=== PATIENT | female | born 1940 | race African-American/Black ===

== ENCOUNTER 2025-06-23 15:43 | Emergency (ER) | payer MEDICARE, MEDICAID, SELFPAY ==
[2025-06-23 15:51] VITALS: BP 103/66; PULSE 98; RESP 19; TEMP 36.7; O2SAT 95; BMI 18.2
--- NOTE | 2025-06-23 16:06 | XR_ITS ---
EXAMINATION: AP chest single view TECHNIQUE: Sitting AP portable chest single view Date and time: June 23, 2025, 1614 hours, comparison July 16, 2015 INDICATIONS: Chest pain today. FINDINGS: Mild prominence left ventricle Moderate hyperexpansion Accentuation of bronchovascular markings No lobar pneumonia. Prominent osteopenia IMPRESSION: COPD Bronchitis pattern
--- NOTE | 2025-06-23 16:06 | EKG_ITS ---
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: : 1940 Requested By: Pelon Jane Order Number: [id number] Reading MD: Pelon Jane Measurements Intervals [place] Rate: 84 P: 63 MD: 117 QRS: 82 QRSD: 114 T: -29 QT: 366 QTc: 434 Interpretive Statements SINUS RHYTHM WITH SHORT MD INTERVAL POSSIBLE LEFT ATRIAL ENLARGEMENT [-0.1mV P-WAVE IN V1/V2] INCOMPLETE RIGHT BUNDLE BRANCH BLOCK [90+ ms QRS DURATION, TERMINAL R IN V1/V2, 40+ ms S IN I/aVL/V4/V5/V6] ST DEVIATION AND MODERATE T-WAVE ABNORMALITY, CONSIDER ANTEROLATERAL ISCHEMIA [-0.1+ mV T-WAVE IN V3-V6] ST DEVIATION AND MODERATE T-WAVE ABNORMALITY, CONSIDER INFERIOR ISCHEMIA [-0.1+ mV T-WAVE IN II/aVF] No previous ECG available for comparison /store/S0/[id number].pdf
--- NOTE | 2025-06-23 16:07 | PD.EDRME ---
Rapid Medical Screening Exam PENDING SALE TO [facility] Arrival date/time: 06/23/25 15:43 84-year-old female with a history of hypertension presents to the emergency room with a chief complaint of generalized weakness and fatigue. Patient states she has lost over a third of her weight in the last month. Patient states she has a loss of appetite and worsening weakness. I have greeted and performed a focused initial assessment of this patient. A comprehensive ED assessment and evaluation of the patient, analysis of all test results, and completion of the medical decision making process will be conducted by additional ED providers. Chief Complaint: Hip Injury/Pain Time Seen by Provider: 06/23/25 15:51 Vital signs: Vital Signs Temperature 98.1 F 06/23/25 15:51 Pulse Rate 98 06/23/25 15:51 Respiratory Rate 19 06/23/25 15:51 Blood Pressure 103/66 06/23/25 15:51 Pulse Oximetry (%) 95 06/23/25 15:51 Oxygen Delivery Method Room Air 06/23/25 15:51 Vital signs reviewed by provider: Yes Exam: Strong and regular rhythm Clear bilateral lung sounds Clinical Impression: Failure to thrive/weakness/hypothyroidism
--- NOTE | 2025-06-23 17:09 | PRELIM_ITS ---
Radiographs of the chest (2 views). June 23, 2025 1613 hours Clinical history: Chest Pain Comparison: No prior study is available for comparison. Findings: The aorta is ectatic with atheromatous calcification of the aortic arch. The heart size is within normal limits. The interstitial markings are prominent. There is no pleural effusion. The bony thorax is unremarkable. Impression: No acute cardiopulmonary process. Report Electronically Signed By: Danielle Gold 06/23/2025 5:09:45 PM [EST]
[2025-06-23 17:23] LABS: Basophils # (Auto) 0.0 Thou/mm3 (0.0-0.2); Basophils % (Auto) 0 % (0-2.5); Eosinophils # (Auto) 0.0 Thou/mm3 (0.0-0.5); Eosinophils % (Auto) 0 % (0-10); Hematocrit 41.0 % (36.0-46.0); Hemoglobin 14.6 g/dL (12.0-16.0); Immature Granulocytes Auto 0.03 Thou/mm3 (0.00-0.00); Lymphocytes # (Auto) 1.5 Thou/mm3 (1.0-4.8); Lymphocytes % (Auto) 13 % (10-50); Mean Corpuscular HGB Conc 35.6 g/dl (31.0-37.0); Mean Corpuscular Hemoglobin 30.9 pg (25.0-35.0); Mean Corpuscular Volume 87 fL (80-100); Monocytes # (Auto) 1.4 Thou/mm3 (0.0-0.8); Monocytes % (Auto) 13 % (0-12); Neutrophils # (Auto) 8.0 Thou/mm3 (1.8-7.7); Neutrophils % (Auto) 73 % (37-80); Nucleated Red Blood Cell # 0.00 Thou/mm3 (0.00-0.00); Nucleated Red Blood Cell % 0 /100 WBC (0); Platelet Count 261 Thou/mm3 (140-440); RDW Standard Deviation 42.6 fL (36.4-46.3); Red Blood Count 4.72 Miln/mm3 (4.00-5.20); White Blood Count 10.9 Thou/mm3 (3.6-11.0)
[2025-06-23 17:46] LABS: INR 1.1 (0.9-1.3); Partial Thromboplastin Time 26.8 Seconds (22.0-36.0); Prothrombin Time 11.4 Seconds (9.0-12.2)
[2025-06-23 17:54] LABS: B-Type Natriuretic Peptide 51 pg/mL (0-100)
[2025-06-23 17:55] LABS: Alanine Aminotransferase 9 U/L (10-49); Albumin, Serum 4.2 gm/dL (3.4-4.8); Albumin/Globulin Ratio 0.9 (1.2-2.2); Alkaline Phosphatase 59 U/L (46-116); Anion Gap 17 (7-16); Aspartate Amino Transferase 23 U/L (0-34); BUN/Creatinine Ratio 16 Ratio (12-20); Bilirubin,Total 0.7 mg/dL (0.3-1.2); Blood Urea Nitrogen 25 mg/dL (9-23); Calcium 9.6 mg/dL (8.3-10.6); Calcium (Corrected) 9.6 mg/dL (8.5-10.1); Carbon Dioxide 31.1 mMol/L (20.0-31.0); Chloride 87 mMol/L (98-107); Creatinine (Component) 1.6 mg/dL (0.6-1.3); Estimated Creatinine Clearance 21.9 mL/min (>60); Free T4 (Free Thyroxine) 1.47 ng/dL (0.89-1.76); Globulin 4.5 gm/dL (2.3-3.5); Glucose 92 mg/dL (74-106); Magnesium 1.8 mg/dL (1.6-2.6); Osmolality,Calculated 274 (275-295); Sodium 135 mMol/L (136-145); Thyroid Stimulating Hormone 2.94 uIU/mL (0.55-4.78); Total Protein 8.7 gm/dL (5.7-8.2); Troponin I 0.045 ng/mL (0.0-0.045); eGFR 32 See Note
[2025-06-23 17:58] LABS: Potassium 2.4 mMol/L (3.4-5.1)
--- NOTE | 2025-06-23 18:22 | PD.EDHIP ---
Lower Extremity Injury RME/HPI General Chief Complaint: Hip Injury/Pain Stated Complaint: BILATERAL HIP PAIN RADIATING TO LOWER BACK Time Seen by Provider: 06/23/25 15:51 Arrival date/time: 06/23/25 15:43 RME / HPI RME / HPI Narrative: 06/23/25 15:43 84-year-old female with a history of hypertension presents to the emergency room with a chief complaint of generalized weakness and fatigue. Patient states she has lost over a third of her weight in the last month. Patient states she has a loss of appetite and worsening weakness. I have greeted and performed a focused initial assessment of this patient. A comprehensive ED assessment and evaluation of the patient, analysis of all test results, and completion of the medical decision making process will be conducted by additional ED providers. See [facility] for Dr. Worthy's HPI documentation. Related Data Home Medications ?Medication ?Instructions ?Recorded ?Confirmed alendronate 10 mg tablet 10 mg PO QAM 01/17/18 01/17/18 fluticasone 100 mcg-salmeterol 50 1 puff inhalation BID 01/17/18 01/17/18 mcg/dose blistr powdr for inhalation (Advair Diskus) hydrochlorothiazide 25 mg tablet 25 mg PO QAM 01/17/18 01/17/18 levothyroxine 112 mcg capsule 112 mcg PO QDAY 01/17/18 01/17/18 montelukast 5 mg chewable tablet 10 mg PO QPM 01/17/18 01/17/18 (Singulair) Allergies Allergy/AdvReac Type Severity Reaction Status Date / Time Penicillins Allergy Severe Anaphylaxis Verified 06/23/25 15:46 Review of Systems Review of Systems Systems Reviewed: All systems reviewed, normal except as documented Past Medical History Past Medical History NEUROLOGIC: Negative Seizures CARDIAC: Positive Cardiac Disorders and Hypertension; Negative Congestive Heart Failure RESPIRATORY: Positive Asthma; Negative Chronic Obstructive Pulmonary Disease (COPD) GASTROINTESTINAL: Negative Gastrointestinal Disorders GENITOURINARY: Negative Genitourinary Disorders or Renal Disease MUSCULOSKELETAL: Negative Musculoskeletal Disorders ENDOCRINE: Positive Endocrine Disorders and Hypothyroidism; Negative Diabetes Mellitus Type 1 or Diabetes Mellitus Type 2 OTHER HISTORY: Negative Blood Transfusions or Anesthesia Reactions Surgical History SURGICAL: Positive Hysterectomy Social History SMOKING STATUS: Former smoker ED Exam Narrative Physical exam: See [facility] for Dr. Worthy's physical exam documentation. Course Quality Measures none Orders Category Date Time Status Bedside COVID-19 Antigen Test NOW Care 06/23/25 18:[address] Screening NOW Care 06/23/25 18:28 Active EKG (ED ONLY) *Do not use* NOW Care 06/23/25 16:06 Completed Saline [Insert IV] NOW Care 06/23/25 18:25 Active Straight [In and Out Catheter] X1 Care 06/23/25 18:[address] abdomen pelvis w con Stat Exams 06/23/25 18:[address] angio chest Stat Exams 06/23/25 18:[address] head/brain wo con Stat Exams 06/23/25 18:28 Ordered EKG (ED Only) Stat Exams 06/23/25 16:06 Draft US gall bladder Stat Exams 06/23/25 18:28 Ordered US venous doppler LE BI Stat Exams 06/23/25 18:28 Ordered XR chest 2V Stat Exams 06/23/25 16:06 Completed ABG [Arterial Blood Gas] Stat Lab 06/23/25 18:30 Ordered Amylase Stat Lab 06/23/25 19:04 Results B-Type Natriuretic Peptide Stat Lab 06/23/25 16:37 Completed Beta Hydroxybutyrate Stat Lab 06/23/25 19:04 Results Bilirubin,Direct Stat Lab 06/23/25 19:04 Results Blood Culture (Lab) Stat Lab 06/23/25 19:04 Received CBC Stat Lab 06/23/25 16:37 Completed CK [Creatine Kinase] Stat Lab 06/23/25 19:04 Results CRP [C-Reactive Protein] Stat Lab 06/23/25 19:04 Results Comprehensive Metabolic Panel Stat Lab 06/23/25 16:37 Completed D-Dimer Stat Lab 06/23/25 19:04 Received ESR [Sed Rate (ESR)] Stat Lab 06/23/25 19:04 Completed Free T3 Stat Lab 06/23/25 19:04 Results Free T4 (Free Thyroxine) Stat Lab 06/23/25 16:37 Completed Influenza A & B Rapid Panel Stat Lab 06/23/25 18:25 Ordered Lactate (Lactic Acid) Stat Lab 06/23/25 19:04 Results Lipase Stat Lab 06/23/25 19:04 Results Magnesium Stat Lab 06/23/25 16:37 Completed Partial Thromboplastin Time Stat Lab 06/23/25 16:37 Completed Procalcitonin Stat Lab 06/23/25 19:04 Results Prothrombin Time with INR Stat Lab 06/23/25 16:37 Completed TSH [Thyroid Stimulating Hormone] Stat Lab 06/23/25 16:37 Completed Troponin I Stat Lab 06/23/25 16:37 Completed Urinalysis, C/S if Indicated Stat Lab 06/23/25 16:06 Ordered Azithromycin Inj [Zithromax Inj] 500 mg Med 06/23/25 18:29 Discontinued Sodium Chloride 0.9% 250 ml [Ns] 250 ml IV X1 MethylPREDNISolone.* [SoluMEDROL Inj] Med 06/23/25 18:26 Discontinued 125 mg IVP X1 ONE Morphine* Inj Med 06/23/25 18:26 Discontinued 2 mg IV X1 ONE Ondansetron Inj [Zofran Inj] Med 06/23/25 18:26 Discontinued 4 mg IVP X1 ONE POTASSIUM CHL 10 mEq IVPB [Kcl Ivpb] Med 06/23/25 18:26 Discontinued 10 meq in 100 ml IV X1 POTASSIUM CHL 10% Liq 15 ML Med 06/23/25 18:26 Discontinued 40 meq PO X1 ONE Ringers Lactated 1000 ml [Lactated Ringers] 1,000 ml Med 06/23/25 18:25 Discontinued IV 1,000 mls/hr cefTRIAXone/D5w 1gm IV premix [Rocephin/D5w 1gm IV Med 06/23/25 18:29 Discontinued premix] 1 gm in 50 ml IV X1 Vital Signs Vital signs: Vital Signs Temperature 98.1 F 06/23/25 15:51 Pulse Rate 98 06/23/25 15:51 Respiratory Rate 19 06/23/25 15:51 Blood Pressure 103/66 06/23/25 15:51 Pulse Oximetry (%) 95 06/23/25 15:51 Oxygen Delivery Method Room Air 06/23/25 15:51 Extremity Injury, Lower MDM Narrative MDM Narrative:: This section includes all my notes and documentations, including HPI, PE, and ED course. Yoni Worthy MD HPI: 84yo female here with fatigue and generalized weakness for the last few weeks. Patient has been bedbound. ROS: All negative except as documented in HPI. Physical Exam: General: Alert and oriented. No acute distress when remaining still. Eyes: Conjunctivae and lids clear. ENT: No nasal congestion. Neck: Supple. Heart: RRR. Lungs: No respiratory distress. Decreased air movement with severe rhonchi. Abdomen: Soft and nontender. Normal bowel sounds. No distension. No rebound or guarding. Back: No CVA tenderness. Skin: Warm and dry. Neuro: Alert and oriented X 3. I reviewed all diagnostic test results. My interpretation of the EKG is My interpretation of the chest x-ray is bronchitis pattern. My review of the CT report is Blood tests are remarkable for K 2.4, Cl 87, Creatinine 1.6, Lactic Acid 2.2, Beta Hydroxybutyrate 2.6. At this point, diagnoses include Treatment here included Significant improvement Not yet done: I discussed the case with our hospitalist. About the presentation and exam and diagnostics and treatments here. And need of further care in the hospital. Will accept the patient. Not yet done: Based on my best medical judgment, made decision no further evaluation or treatment indicated at this time. Patient understands and agrees to the discharge instructions customized and printed, see below. Yoni Worthy MD Patient data External records reviewed:: [facility] previous records (Per chart review, patient has no previous ED visits or admissions to this facility.) Clinical information provided by:: patient Social determinants that could affect healthcare access:: none Patient has the following chronic illnesses:: HTN, hypothyroidism How is presenting disease/condition affected by chronic disease/condition?: uneffected by Evaluation data The following diagnostics were reviewed and interpreted by me:: lab results, radiology exam(s) and EKG tracing(s) Lab and/or radiology exams considered but not ordered:: none Medications / Prescriptions Medications or Prescriptions considered but not ordered:: none Medication administrations:: Medication Administration History Discontinued Medications Lactated Ringer's (Lactated Ringers) 1,000 mls @ 1,000 mls/hr IV .Q1H ONE Stop: 06/23/25 19:24 Potassium Chloride (Kcl Ivpb) 10 meq in 100 mls @ 100 mls/hr IV X1 ONE Stop: 06/23/25 19:25 Azithromycin 500 mg/ Sodium (Chloride) 250 mls @ 250 mls/hr IV X1 ONE Stop: 06/23/25 19:28 Ceftriaxone Sodium/Dextrose (Rocephin/D5w 1gm Iv Premix) 1 gm in 50 mls @ 100 mls/hr IV X1 ONE Stop: 06/23/25 18:58 Methylprednisolone Sodium Succinate (Methylprednisolone Sod Succ 62.5 Mg/Ml 2ml Vial) 125 mg IVP X1 ONE Stop: 06/23/25 18:27 Morphine Sulfate (Morphine Sulf Inj 4 Mg/Ml Vial) 2 mg IV X1 ONE Stop: 06/23/25 18:27 Ondansetron HCl (Ondansetron Inj 2 Mg/Ml Inj 2 Ml) 4 mg IVP X1 ONE; Protocol Stop: 06/23/25 18:27 Potassium Chloride (Potassium Chloride 10% 20 Meq/15 Ml Udc) 40 meq PO X1 ONE Stop: 06/23/25 18:27 Discharge Plan Prescriptions/Referrals Prescriptions/Med Rec: No Action montelukast [Singulair] 5 mg Tablet,Chewable 10 mg PO QPM alendronate 10 mg Tablet 10 mg PO QAM hydrochlorothiazide 25 mg Tablet 25 mg PO QAM fluticasone propion-salmeterol [Advair Diskus] 100-50 mcg/dose Blister With Device 1 puff INHALATION BID levothyroxine 112 mcg Capsule 112 mcg PO QDAY Referrals: Tess Mandujano PA-C [Primary Care Provider] - In 1 week Patient/Caregiver Discharge Instructions Print Language: [place]
--- NOTE | 2025-06-23 18:28 | XR_ITS ---
Examination: Venous duplex lower extremity sonogram, bilateral. Date and time of exam: June 23, 20252005 hours INDICATIONS: Hip pain elevated D-dimer today Technique: Multiple sonographic images of the deep venous system have been obtained. B-mode/2-D grayscale imaging of vascular structures and Doppler spectral analysis (waveforms) and color performed Both legs are examined. Findings: Deep venous systems do not demonstrate abnormal echogenicity. All visualized deep veins exhibit compressibility. All visualized deep veins exhibit augmentation. Impression: Negative for deep vein thrombosis
--- NOTE | 2025-06-23 18:28 | XR_ITS ---
Examination: Abdomen sonogram, Limited Date and time of exam: June 23, 2025, 1954 hours INDICATIONS: Abdominal tenderness today Technique: Real-time [place] scale transabdominal sonographic images of the upper abdomen obtained. Findings: Gallbladder sludge Negative for gallstones Normal gallbladder wall Normal common bile duct 0.5 cm Pancreatic head 0.9 cm no stones Liver 12.9 cm no liver lesions Normal hepatopetal portal venous flow Patent IVC IMPRESSION: Negative for cholelithiasis, negative for cholecystitis Common bile duct 0.5 cm no common bile duct stones
--- NOTE | 2025-06-23 18:28 | XR_ITS ---
Examination: CT abdomen with intravenous contrast CT pelvis with intravenous contrast 2-D coronal reconstructions 2-D sagittal reconstructions Date and time of exam: June 23, 2025, 0936 hours INDICATIONS: Abdominal pain, hip pain today. CTDI: vol (mGy) 20.34 DLP: (mGycm) 734 Technique: Multiple axial sections of the abdomen and pelvis have been obtained. 64 slice high-resolution scanner used. 3 mm axial sections have been obtained, post intravenous injection of 30 cc Isovue-300 2-D sagittal, coronal reconstructions obtained. Low dose protocols were performed. One or more of the following dose reduction techniques were used; automated exposure control, adjustment of the mA and/or KV according to patient size, use of iterative reconstruction technique. 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
--- NOTE | 2025-06-23 18:28 | XR_ITS ---
Examination: CT brain head without contrast. 2-D sagittal coronal reconstructions Date and time of exam: June 23, 2025, 2139 hours INDICATION: Altered mental status today CTDI: vol (mGy): 40.6 DLP: (mGycm): 785 Technique: Multiple CT axial sections of the brain have been obtained, 5 mm slice thickness. Contrast has not been administered. 2-D sagittal, coronal reconstructions have been obtained Low dose protocols were performed. One or more of the following dose reduction techniques were used; automated exposure control, adjustment of the mA and/or KV according to patient size, use of iterative reconstruction technique. Findings: No significant ventricular enlargement. Intra-axial or extra-axial hemorrhage density is not seen. No mass effect or midline shift Basal cisterns are not remarkable. Fourth ventricle is midline. Cranial vault intact. Impression: Negative for acute hemorrhage, mass effect or midline shift
--- NOTE | 2025-06-23 18:28 | XR_ITS ---
Examination: CTA chest with intravenous contrast 2-D reconstructions 3-D reconstructions, vascular Date and time of exam: June 23, 2025, 2136 hours INDICATIONS: Shortness of breath chest pain onset today. CTDI: vol (mGy) 14.1 DLP: (mGycm) 393 Technique: Multiple axial sections of the thorax have been obtained. 3 mm slice thickness, from below the hemidiaphragms to above the apices of the lungs. Mediastinal and lung density settings have been obtained. 2-D sagittal and coronal reconstructions. 3-D angiographic renderings, 3-D volume renderings, 3D post processing, vascular maximum intensity projections obtained. Contrast administered is 73 cc Isovue 300. Low dose protocols were performed. One or more of the following dose reduction techniques were used; automated exposure control, adjustment of the mA and/or KV according to patient size, use of iterative reconstruction technique. Findings: Enlarged thyroid nodule with calcified small subcentimeter thyroid nodules Thoracic aortic calcification no aneurysmal dilatation No pulmonary artery emboli No paratracheal tracheobronchial or bronchopulmonary adenopathy No pneumonia, pulmonary edema or significant pleural disease Moderate thoracic spondylosis No visualized liver or splenic lesion No hydronephrosis No gallstones identified IMPRESSION: Negative for thoracic cardiac aneurysm dilatation or dissection Negative for pulmonary artery emboli Right thyromegaly with multiple subcentimeter calcified thyroid nodules, consider dedicated thyroid sonography follow-up No paratracheal tracheobronchial bronchopulmonary adenopathy No pneumonia or pulmonary edema or pleural disease
[2025-06-23 18:42] VITALS: BP 140/73; PULSE 68; RESP 16; TEMP 36.3; O2SAT 94
[2025-06-23 19:19] LABS: Lactate (Lactic Acid) 2.2 mMol/L (0.4-2.0)
[2025-06-23 19:25] LABS: Sed Rate (ESR) 98 mm/hr (0-30)
[2025-06-23 19:29] LABS: Beta Hydroxybutyrate 2.6 mmol/L (<0.6)
--- NOTE | 2025-06-23 19:49 | EDNOTE_ITS ---
ED Weakness RME/HPI General Chief complaint: Weakness Stated complaint: BILATERAL HIP PAIN RADIATING TO LOWER BACK Time Seen by Provider: 06/23/25 15:51 Arrival date/time: 06/23/25 15:43 RME / HPI RME / HPI Narrative: 06/23/25 15:43 84-year-old female with a history of hypertension presents to the emergency room with a chief complaint of generalized weakness and fatigue. Patient states she has lost over a third of her weight in the last month. Patient states she has a loss of appetite and worsening weakness. I have greeted and performed a focused initial assessment of this patient. A comprehensive ED assessment and evaluation of the patient, analysis of all test results, and completion of the medical decision making process will be conducted by additional ED providers. See [facility] for Dr. Worthy's HPI documentation. Related Data Home Medications ?Medication ?Instructions ?Recorded ?Confirmed alendronate 10 mg tablet 10 mg PO QAM 01/17/18 fluticasone 100 mcg-salmeterol 50 1 puff inhalation BI D 01/17/18 01/17/18 mcg/dose blistr powdr for inhalation (Advair Diskus) hydrochlorothiazide 25 mg tablet 25 mg PO QAM 01/17/18 01/17/18 levothyroxine 112 mcg capsule 112 mcg PO QDAY 01/17/18 01/17/18 montelukast 5 mg chewable tablet 10 mg PO QPM 01/17/18 01/17/18 (Singulair) Allergies Allergy/AdvReac Type Severity Reaction Status Date / Time Penicillins Allergy Severe Anaphylaxis Verified 06/23/25 15:46 Review of Systems Review of Systems Systems Reviewed: All systems reviewed, normal except as documented Past Medical History Past Medical History NEUROLOGIC: Negative Seizures CARDIAC: Positive Hypertension; Negative Cardiac Disorders or Congestive Heart Failure RESPIRATORY: Positive Asthma; Negative Chronic Obstructive Pulmonary Disease (COPD) GASTROINTESTINAL: Negative Gastrointestinal Disorders GENITOURINARY: Negative Genitourinary Disorders or Renal Disease MUSCULOSKELETAL: Negative Musculoskeletal Disorders ENDOCRINE: Positive Endocrine Disorders and Hypothyroidism; Negative Diabetes Mellitus Type 1 or Diabetes Mellitus Type 2 HEMATOLOGIC: Negative Sickle Cell Disease OTHER HISTORY: Negative Blood Transfusions or Anesthesia Reactions Surgical History SURGICAL: Positive Hysterectomy Social History SMOKING STATUS: Never smoker ED Exam Narrative Physical exam: See [facility] for Dr. Worthy's physical exam documentation. Course Course Course Narrative: CXR is ordered for determining the etiology of weakness. Quality Measures none Orders Category Date Time Status Bedside COVID-19 Antigen Test NOW Care 06/23/25 18:[address] Screening NOW Care 06/23/25 18:28 Active EKG (ED ONLY) *Do not use* NOW Care 06/23/25 16:06 Completed MRI Screening NOW Care 06/23/25 23:46 Active Saline [Insert IV] NOW Care 06/23/25 18:25 Active Straight [In and Out Catheter] X1 Care 06/23/25 18:[address] abdomen pelvis w con Stat Exams 06/23/25 18:[address] angio chest Stat Exams 06/23/25 18:[address] head/brain wo con Stat Exams 06/23/25 18:28 Completed EKG (ED Only) Stat Exams 06/23/25 16:06 Draft MR lumbar spine wo con Stat Exams 06/23/25 Ordered US gall bladder Stat Exams 06/23/25 18:28 Completed US venous doppler LE BI Stat Exams 06/23/25 18:28 Completed XR chest 2V Stat Exams 06/23/25 16:06 Completed ABG [Arterial Blood Gas] Stat Lab 06/23/25 19:55 Completed Amylase Stat Lab 06/23/25 19:04 Completed B-Type Natriuretic Peptide Stat Lab 06/23/25 16:37 Completed Beta Hydroxybutyrate Stat Lab 06/23/25 19:04 Completed Bilirubin,Direct Stat Lab 06/23/25 19:04 Completed Blood Culture (Lab) Stat Lab 06/23/25 19:04 Received CBC Stat Lab 06/23/25 16:37 Completed CK [Creatine Kinase] Stat Lab 06/23/25 19:04 Completed CRP [C-Reactive Protein] Stat Lab 06/23/25 19:04 Completed Comprehensive Metabolic Panel Stat Lab 06/23/25 16:37 Completed D-Dimer Stat Lab 06/23/25 19:04 Completed ESR [Sed Rate (ESR)] Stat Lab 06/23/25 19:04 Completed Free T3 Stat Lab 06/23/25 19:04 Completed Free T4 (Free Thyroxine) Stat Lab 06/23/25 16:37 Completed Influenza A & B Rapid Panel Stat Lab 06/23/25 19:56 Completed Lactate (Lactic Acid) Stat Lab 06/23/25 19:04 Completed Lactic Acid, 3 HR Stat Lab 06/23/25 22:57 Completed Lipase Stat Lab 06/23/25 19:04 Completed Magnesium Stat Lab 06/23/25 16:37 Completed Partial Thromboplastin Time Stat Lab 06/23/25 16:37 Completed Procalcitonin Stat Lab 06/23/25 19:04 Completed Prothrombin Time with INR Stat Lab 06/23/25 16:37 Completed TSH [Thyroid Stimulating Hormone] Stat Lab 06/23/25 16:37 Completed Troponin I Stat Lab 06/23/25 16:37 Completed Urinalysis, C/S if Indicated Stat Lab 06/23/25 20:44 Completed Azithromycin Inj [Zithromax Inj] 500 mg Med 06/23/25 18:29 Discontinued Sodium Chloride 0.9% 250 ml [Ns] 250 ml IV X1 MethylPREDNISolone.* [SoluMEDROL Inj] Med 06/23/25 18:26 Discontinued 125 mg IVP X1 ONE Morphine* Inj Med 06/23/25 18:26 Discontinued 2 mg IV X1 ONE Ondansetron Inj [Zofran Inj] Med 06/23/25 18:26 Discontinued 4 mg IVP X1 ONE POTASSIUM CHL 10 mEq IVPB [Kcl Ivpb] Med 06/23/25 18:26 Discontinued 10 meq in 100 ml IV X1 POTASSIUM CHL 10% Liq 15 ML Med 06/23/25 18:26 Discontinued 40 meq PO X1 ONE Ringers Lactated 1000 ml [Lactated Ringers] 1,000 ml Med 06/23/25 18:25 Discontinued IV 1,000 mls/hr Ringers Lactated 1000 ml [Lactated Ringers] 1,000 ml Med 06/23/25 22:33 Discontinued IV 500 mls/hr cefTRIAXone/D5w 1gm IV premix [Rocephin/D5w 1gm IV Med 06/23/25 18:29 Discontinued premix] 1 gm in 50 ml IV X1 Vital Signs Vital signs: Vital Signs Temperature 98.1 F 06/23/25 15:51 Pulse Rate 98 06/23/25 15:51 Respiratory Rate 19 06/23/25 15:51 Blood Pressure 103/66 06/23/25 15:51 Pulse Oximetry (%) 95 06/23/25 15:51 Oxygen Delivery Method Room Air 06/23/25 15:51 Weakness MDM Narrative MDM Narrative:: This section includes all my notes and documentations, including HPI, PE, and ED course. Yoni Worthy MD HPI: 84-year-old female here to be evaluated with multiple concerns. For the past couple weeks, she has been bound due to severe low back pain radiating into right leg. With any movement, she reports excruciating pain. No paralysis in the lower extremities. No loss of control of the bladder or bowels. No saddle numbness. She reports progressively worsening malaise and fatigue and anorexia. No other complaints. ROS: All negative except as documented in HPI. Physical Exam: General:? Alert and oriented.? Appearance of malaise noted. Eyes:? Conjunctivae and lids clear.? EOMI.? PERRL. ENT:? No signs of head trauma. Neck:? Supple.? No tenderness. Heart:? RRR. Lungs:? No respiratory distress.? Decreased air movement with diffuse rhonchi. Chest:? No tenderness. Abdomen:? Soft and nontender.? Normal bowel sounds.? No distension.? No rebound or guarding.? Back: Equivocal spinal tenderness.? Skin:? Warm and dry.? Neuro:? Alert and oriented X 3.? Cranial Nerves II-XII grossly intact.? No peripheral motor deficits. Musculoskeletal:? All major joints and bones are not tender with no limited ROM. I reviewed all diagnostic test results. My interpretation of the EKG is sinus rhythm with no acute ST?T changes. My interpretation of the chest x-ray is NAD. My review of the gallbladder US report is NAD. My review of the BLE US report is no DVT. My review of the CT head report is NAD. My review of the CTA chest report is no PE. My review of the CT abdomen pelvis report is L5-S1 4 mm central lumbar disc bulge displacing the right and left S1 nerve roots. Blood/urine tests are remarkable for ESR 98, D-Dimer 2750, K 2.4, Lactic Acid 2.2, Beta Hydroxybutyrate 2.6, CRP 30.1. I ordered MRI of the lumbar spine. At this point, diagnoses include: Lumbar spinal stenosis Failure to thrive Hypokalemia Bronchospasm Treatment here included: IVF Zofran 4 mg IV Morphine 2 mg IV Solu-Medrol 125 mg IV Oral and IV KCl Rocephin 1 g and Zithromax 500 mg IV Patient felt much better. At 6 AM on 06/24/2025, the care of the patient was transferred to Dr. Jones. Yoni Worthy MD Patient data External records reviewed:: [facility] previous records (Per chart review, patient has no previous ED visits or admissions to this facility.) Clinical information provided by:: patient Social determinants that could affect healthcare access:: none Patient has the following chronic illnesses:: HTN, hypothyroidism How is presenting disease/condition affected by chronic disease/condition?: uneffected by Evaluation data The following diagnostics were reviewed and interpreted by me:: lab results, radiology exam(s) and EKG tracing(s) Lab and/or radiology exams considered but not ordered:: none Interpretation Summary: I reviewed all diagnostic test results. My interpretation of the EKG is sinus rhythm with no acute ST?T changes. My interpretation of the chest x-ray is NAD. My review of the gallbladder US report is NAD. My review of the BLE US report is no DVT. My review of the CT head report is NAD. My review of the CTA chest report is no PE. My review of the CT abdomen pelvis report is L5-S1 4 mm central lumbar disc bulge displacing the right and left S1 nerve roots. Blood/urine tests are remarkable for ESR 98, D-Dimer 2750, K 2.4, Lactic Acid 2.2, Beta Hydroxybutyrate 2.6, CRP 30.1. I ordered MRI of the lumbar spine. Medications / Prescriptions Medications or Prescriptions considered but not ordered:: none Medication administrations:: Medication Administration History Discontinued Medications Lactated Ringer's (Lactated Ringers) 1,000 mls @ 1,000 mls/hr IV .Q1H ONE Stop: 06/23/25 19:24 Last Admin: 06/23/25 21:15 Dose: 1,000 mls/hr Documented By: AM Potassium Chloride (Kcl Ivpb) 10 meq in 100 mls @ 100 mls/hr IV X1 ONE Stop: 06/23/25 19:25 Last Infusion: 06/24/25 00:09 Dose: Infused Documented By: Admin: 06/23/25 22:00 Dose: 75 mls/hr Documented By: AM Azithromycin 500 mg/ Sodium (Chloride) 250 mls @ 250 mls/hr IV X1 ONE Stop: 06/23/25 19:28 Last Infusion: 06/24/25 01:15 Dose: Infused Documented By: Admin: 06/24/25 00:08 Dose: 250 mls/hr Documented By: AM Ceftriaxone Sodium/Dextrose (Rocephin/D5w 1gm Iv Premix) 1 gm in 50 mls @ 100 mls/hr IV X1 ONE Stop: 06/23/25 18:58 Last Infusion: 06/23/25 22:58 Dose: Infused Documented By: Admin: 06/23/25 21:19 Dose: 100 mls/hr Documented By: AM Lactated Ringer's (Lactated Ringers) 1,000 mls @ 500 mls/hr IV .Q2H ONE Stop: 06/24/25 00:32 Methylprednisolone Sodium Succinate (Methylprednisolone Sod Succ 62.5 Mg/Ml 2ml Vial) 125 mg IVP X1 ONE Stop: 06/23/25 18:27 Last Admin: 06/23/25 21:51 Dose: 125 mg Documented By: AM Morphine Sulfate (Morphine Sulf Inj 4 Mg/Ml Vial) 2 mg IV X1 ONE Stop: 06/23/25 18:27 Last Admin: 06/23/25 21:14 Dose: 2 mg Documented By: AM Ondansetron HCl (Ondansetron Inj 2 Mg/Ml Inj 2 Ml) 4 mg IVP X1 ONE; Protocol Stop: 06/23/25 18:27 Last Admin: 06/23/25 21:14 Dose: 4 mg Documented By: AM Potassium Chloride (Potassium Chloride 10% 20 Meq/15 Ml Udc) 40 meq PO X1 ONE Stop: 06/23/25 18:27 Last Admin: 06/23/25 21:52 Dose: 40 meq Documented By: AM Treatment here included: IVF Zofran 4 mg IV Morphine 2 mg IV Solu-Medrol 125 mg IV Oral and IV KCl Rocephin 1 g and Zithromax 500 mg IV Consultations Consultation(s) initiated? (list below): No Diagnosis Weakness Differential Diagnosis: acute myocardial infarction, anemia, hypoglycemia, hypothyroidism, rhabdomyolysis, sepsis and dehydration Most likely diagnosis given after review of the tests above:: Lumbar spinal stenosis Failure to thrive Hypokalemia Bronchospasm Admission Indicated Admission indicated?: not indicated Explain why admission is indicated or not indicated:: Complete diagnostics pending. Admission Request Was there a request for admission?: No Disposition Plan Disposition Plan: other (specify) (Signed out to Dr. Jones at 6 AM.) Discharge Plan Prescriptions/Referrals Prescriptions/Med Rec: No Action montelukast [Singulair] 5 mg Tablet,Chewable 10 mg PO QPM alendronate 10 mg Tablet 10 mg PO QAM hydrochlorothiazide 25 mg Tablet 25 mg PO QAM fluticasone propion-salmeterol [Advair Diskus] 100-50 mcg/dose Blister With Device 1 puff INHALATION BID levothyroxine 112 mcg Capsule 112 mcg PO QDAY Referrals: Tess Mandujano PA-C [Primary Care Provider] - In 1 week Problem List Clinical Impression: Lumbar spinal stenosis, Failure to thrive, Hypokalemia, Bronchospasm Patient/Caregiver Discharge Instructions Print Language: Hungarian
[2025-06-23 19:52] LABS: D-Dimer 2750 ng/mL (<600)
[2025-06-23 19:59] LABS: Base Excess 11 (-3-3); HCO3 34 mEq/L (20-26); Inspired Oxygen, FIO2 21 %; O2 Saturation 96 % (91-98); PCO2 38 mmHg (32.0-48.0); PO2 68 mmHg (83-108); pH, Arterial 7.56 (7.35-7.45)
[2025-06-23 20:02] LABS: Allen Test Performed/OK; Puncture Site Right Radial
[2025-06-23 20:02] LABS: Amylase 51 U/L (30-118); Bilirubin,Direct 0.3 mg/dL (0.0-0.3); C-Reactive Protein 30.1 mg/dL (0.0-0.9); Creatine Kinase 130 U/L (34-171); Free T3 1.3 pg/mL (2.3-4.2); Lipase 21 U/L (12-53); Procalcitonin 0.18 ng/ml (0.0-0.49)
[2025-06-23 20:40] LABS: Influenza A Ag Negative; Influenza B Ag Negative
[2025-06-23 20:53] LABS: Collection Type, Urine Clean Catch
[2025-06-23 20:58] LABS: Bilirubin,Urine Negative (Negative); Blood,Urine Negative (Negative); Clarity,Urine Clear (Clear/Hazy); Color,Urine Yellow (Lt Yel-Yel); Culture Indicated,Urine Not Indicated; Glucose, Urine Negative (Negative); Ketones,Urine 1+ (Negative); Leukocyte Esterase,Urine Negative (Negative); Nitrite,Urine Negative (Negative); PH,Urine 5.5 (5.0-7.0); Protein,Urine Trace (Neg - Trace); RBC,Urine < 1 /hpf (0-3); Specific Gravity,Urine 1.017 (1.001-1.035); Squamous Epithelial Cell,Urine 1 /hpf (0-5); Urobilinogen,Urine Negative mg/dL (0.0-1.0); WBC,Urine < 1 /hpf (0-5)
[2025-06-23] MEDS: MORPHINE SULF INJ 4 MG/ML VIAL 2 MG IV (21:14)
[2025-06-23] MEDS: ONDANSETRON INJ 2 MG/ML INJ 2 ML 4 MG IVP (21:14)
[2025-06-23] MEDS: RINGERS LACTATED 1000 ML 1,000 ML IV (21:15)
[2025-06-23] MEDS: cefTRIAXone/D5w 1gm IV premix 1 GM/50 ML BAG IV (21:19)
[2025-06-23] MEDS: MethylPREDNISolone SOD SUCC 62.5 MG/ML 2ML VIAL 125 MG IVP (21:51)
[2025-06-23] MEDS: POTASSIUM CHLORIDE 10% 20 MEQ/15 ML UDC 40 MEQ PO (21:52)
[2025-06-23 21:58] VITALS: BP 141/72; PULSE 70; RESP 19; TEMP 36.7; O2SAT 93
[2025-06-23] MEDS: POTASSIUM CHL 10 mEq IVPB 10 MEQ/100 ML BAG 75 MEQ IV (22:00)
[2025-06-23 22:16] LABS: Reflex Lactate? Y
[2025-06-23 23:01] LABS: Lactic Acid, 3 HR 2.5 mMol/L (0.4-2.0)
[2025-06-24] VITALS (8 sets, daily range): BP systolic 98–126; BP diastolic 52–62; PULSE 54–85; RESP 16–17; TEMP 36.3–36.7; O2SAT 89–97
--- NOTE | 2025-06-24 | XR_ITS ---
Examination: MRI lumbar spine without contrast Date and time of exam: 06/24/2025, 9:59 a.m. INDICATION: Generalized weakness and fatigue. Reported loss of appetite and worsening weakness. History of hypertension. Technique: Multiple MRI axial and sagittal sections lumbar spine. Sagittal T2-weighted images, TR 3500, TE 118 T1 weighted transverse sections, TR 688 T8.5, T2-weighted sagittal sections T1 weighted sagittal sections TR 621, TE 30 T2 axial sections, TR 4, 190, TE 84. Findings: Intact lumbar lordosis. No listhesis or recent vertebral compression fracture. No concerning marrow edema. No malignant appearing lesions. Small hemangioma noted in the L3 vertebral body, potentially in the L4 vertebral body as well.. Multilevel lumbar and visualized thoracic spondylosis and degenerative disc related changes including multilevel disc desiccation and disc protrusions are present. Dominant degenerative disc and endplate changes are present at L5-S1, including disc desiccation with very small posterior annular fissure, type I fatty marrow signal changes, and small chronic Schmorl's node at the inferior endplate of L5. A mild posterior disc protrusion slightly indents the thecal sac. There is severe bilateral hypertrophic facet arthropathy with associate ligament flavum thickening and buckling, contributing to mild to moderate left lateral recess stenosis. Otherwise, no significant central canal stenosis. Multifactorial high-grade left neural foraminal stenosis is seen. No significant right neural foraminal stenosis. At L4-L5, disc stature is well maintained. Disc protrusion eccentric to the left encroaches the left neural foramen. Bilateral hypertrophic facet arthropathy and ligamentum flavum thickening are present, the findings result again very mild central canal stenosis and mild to moderate left neural foraminal stenosis and mild right neural foraminal stenosis. At L3-L4, mild hypertrophic facet arthropathy and ligamentum flavum thickening/buckling, greater on the left side, results in mild central canal stenosis and thecal sac indentation. Mild disc protrusions encroach the neural foramina, greater on the left with multifactorial mild to moderate bilateral neural foraminal stenosis present. At L2-L3, there is slight protruding disc toward the neural foramina with otherwise no disc herniation or significant acquired central canal stenosis. Right greater than left facet arthropathy and mild ligamentum flavum thickening and buckling are present. Mild to moderate left-sided neural foraminal stenosis identified. At L1-L2, there is mild left paracentral disc protrusion slightly indenting the thecal sac and encroaching the left neural foramen which is moderately narrowed. No significant right foraminal stenosis or central canal stenosis. Bilateral facet arthropathy ligamentum flavum thickening are present. The visualized distal spinal cord demonstrates normal morphology and signal intensity. No distal cord impingement. Multilevel mild posterior disc protrusions identified in the thoracic spine. No paraspinous mass or abnormal fluid collection is detected. There are multiple small and very small T2 hyperintense left renal cysts. No hydronephrosis. No abdominal aortic aneurysm in the [id number]. Impression: Multilevel spondylosis and degenerative disc changes with mild and moderate neural foraminal stenoses as described above. No evidence for high-grade central canal stenosis. The visualized spinal cord is intact without evidence for impingement, mass or signal abnormality.
[2025-06-24] MEDS: AZITHROMYCIN INJ 500 MG in SODIUM CHLORIDE 0.9% 250 ML 250 ML 250 MG IV (00:08)
[2025-06-24] MEDS: RINGERS LACTATED 1000 ML 1,000 ML 500 ML IV (03:28)
--- NOTE | 2025-06-24 13:21 | PD.EDADDENDU ---
Emergency Room Addendum Addendum Narrative: 0600: Care assumed from Dr. Worthy, the previous shift emergency physician. Past medical, surgical, social and family history reviewed. Vitals and home medications reviewed. I will assume the care of the patient at this time, pending MRI lumbar spine and final disposition. Please refer to the emergency department record for history and examination from initial visit.?The following addendum documentation note is intended to reflect any pending information, findings, or radiology results not included in the patient?s initial chart. 1400: We reviewed all the results, analysis, and treatment plans. I offered to consult with social service technician to consider home health or physical therapy for rehabilitation. Patient refused services offered and states she had already attempted to request home health services with PCP. The patient was instructed to follow up with PCP for further home health vs physical therapy vs rehab facility services and referral to see a neurosurgeon. Patient is in agreement with plan. Will DC home. RADIOLOGY Ordering Physician: Yoni Worthy MD Date of Service: 06/24/25 Procedure(s): MR lumbar spine wo con Accession Number(s): [id number] cc: Tess Mandujano PA-C; Yoni Worthy MD; Armen Gomez DO~ Examination: MRI lumbar spine without contrast Date and time of exam: 06/24/2025, 9:59 a.m. INDICATION: Generalized weakness and fatigue. Reported loss of appetite and worsening weakness. History of hypertension. Technique: Multiple MRI axial and sagittal sections lumbar spine. Sagittal T2-weighted images, TR 3500, TE 118 T1 weighted transverse sections, TR 688 T8.5, T2-weighted sagittal sections T1 weighted sagittal sections TR 621, TE 30 T2 axial sections, TR 4, 190, TE 84. Findings: Intact lumbar lordosis. No listhesis or recent vertebral compression fracture. No concerning marrow edema. No malignant appearing lesions. Small hemangioma noted in the L3 vertebral body, potentially in the L4 vertebral body as well.. Multilevel lumbar and visualized thoracic spondylosis and degenerative disc related changes including multilevel disc desiccation and disc protrusions are present. Dominant degenerative disc and endplate changes are present at L5-S1, including disc desiccation with very small posterior annular fissure, type I fatty marrow signal changes, and small chronic Schmorl's node at the inferior endplate of L5. A mild posterior disc protrusion slightly indents the thecal sac. There is severe bilateral hypertrophic facet arthropathy with associate ligament flavum thickening and buckling, contributing to mild to moderate left lateral recess stenosis. Otherwise, no significant central canal stenosis. Multifactorial high-grade left neural foraminal stenosis is seen. No significant right neural foraminal stenosis. At L4-L5, disc stature is well maintained. Disc protrusion eccentric to the left encroaches the left neural foramen. Bilateral hypertrophic facet arthropathy and ligamentum flavum thickening are present, the findings result again very mild central canal stenosis and mild to moderate left neural foraminal stenosis and mild right neural foraminal stenosis. At L3-L4, mild hypertrophic facet arthropathy and ligamentum flavum thickening/buckling, greater on the left side, results in mild central canal stenosis and thecal sac indentation. Mild disc protrusions encroach the neural foramina, greater on the left with multifactorial mild to moderate bilateral neural foraminal stenosis present. At L2-L3, there is slight protruding disc toward the neural foramina with otherwise no disc herniation or significant acquired central canal stenosis. Right greater than left facet arthropathy and mild ligamentum flavum thickening and buckling are present. Mild to moderate left-sided neural foraminal stenosis identified. At L1-L2, there is mild left paracentral disc protrusion slightly indenting the thecal sac and encroaching the left neural foramen which is moderately narrowed. No significant right foraminal stenosis or central canal stenosis. Bilateral facet arthropathy ligamentum flavum thickening are present. The visualized distal spinal cord demonstrates normal morphology and signal intensity. No distal cord impingement. Multilevel mild posterior disc protrusions identified in the thoracic spine. No paraspinous mass or abnormal fluid collection is detected. There are multiple small and very small T2 hyperintense left renal cysts. No hydronephrosis. No abdominal aortic aneurysm in the [id number]. Impression: Multilevel spondylosis and degenerative disc changes with mild and moderate neural foraminal stenoses as described above. No evidence for high-grade central canal stenosis. The visualized spinal cord is intact without evidence for impingement, mass or signal abnormality. Dictated By: Armen Gomez DO Signed By: <Electronically signed by Armen Gomez DO in OV>06/24/25 1103
[2025-06-24 14:11] LABS: Anion Gap 14 (7-16); BUN/Creatinine Ratio 26 Ratio (12-20); Blood Urea Nitrogen 31 mg/dL (9-23); Calcium 8.8 mg/dL (8.3-10.6); Carbon Dioxide 32.8 mMol/L (20.0-31.0); Chloride 92 mMol/L (98-107); Creatinine (Component) 1.2 mg/dL (0.6-1.3); Estimated Creatinine Clearance 29.2 mL/min (>60); Glucose 108 mg/dL (74-106); Osmolality,Calculated 285 (275-295); Potassium 2.9 mMol/L (3.4-5.1); Sodium 139 mMol/L (136-145); eGFR 45 See Note
--- NOTE | 2025-06-24 14:42 | PC.CC ---
Addendum entered by Elisa Boyd 06/24/25 15:24: 1523-Per Jayda LEARY, pts family will p/u pt. ASW contacted [employer] to cancel the transportation and it was cancelled. Addendum entered by Elisa Boyd 06/24/25 15:20: Per ORALIA Rosado, ASW arranged transportation for this pt and stated she needs gurney transport Original Note: 1442-P/u ETA 1630. ASW arranged transportation for pt via [employer], then dispatch.
== END 2025-06-24 15:41 | disposition home or self-care (01) ==
PROVIDERS: Emergency Medicine; Nurse Practitioner Family; Emergency Provider Emergency Medicine; PCP Physician Assistant Medical
DX: R62.7 Adult failure to thrive (principal); J98.01 Acute bronchospasm; E87.6 Hypokalemia; M48.061 Spinal stenosis, lumbar region without neurogenic claudication; I10 Essential (primary) hypertension
CPT/HCPCS: 36415; 36600; 51701; 70450; 71046; 71275; 72148; 74177; 76705; 80048; 80053; 81001; 82010; 82150; 82248; 82550; 82803; 83605; 83690; 83735; 83880; 84145; 84439; 84443; 84481; 84484; 85025; 85379; 85610; 85652; 85730; 86140; 87040; 87502; 87635; 93005; 93970; 96361; 96365; 96366; 96375; 99284; A4649; J0456; J0696; J2270; J2405; J2919; J3480; J7050; J7120; Q9967; A9270